=== PATIENT | male | born 1995 | race Caucasian/White ===

== ENCOUNTER 2017-12-23 12:13 | Emergency (ER) | payer SELFPAY ==
[2017-12-23 14:25] VITALS: BP 157/100
--- NOTE | 2017-12-23 14:45 | ED ---
Upper Extremity Pain - HPI Summary HPI Summary: 22 year-old male presents with left middle finger injury since Friday. He states he slammed a car door on his finger. He states at the distal aspect of his finger continues to swell. He has a hematoma under his nail. He has a previous injury to the area multiple years ago and has decreased sensation of that finger at baseline. He states the area is swollen. Pain is 8 out of 10. He states pain is worse with movement. He states that he feels a pressure under his nail. - History of Current Complaint Chief Complaint: EDExtremityUpper Stated Complaint: LT MIDDLE FINGER INJURY Time Seen by Provider: 12/23/17 14:26 - Allergies/Home Medications Allergies/Adverse Reactions: Allergies Allergy/AdvReac Type Severity Reaction Status Date / Time CATS Allergy Severe DYSPNEA Uncoded 09/22/15 16:13 SEASONAL Allergy Coughing Uncoded 09/22/15 16:13 PMH/Surg Hx/FS Hx/Imm Hx Endocrine/Hematology History: Denies: Hx Diabetes, Hx Thyroid Disease Cardiovascular History: Denies: Hx Hypertension Respiratory History: Reports: Hx Asthma Denies: Hx Chronic Obstructive Pulmonary Disease (COPD) GI History: Denies: Hx Ulcer - Surgical History Surgery Procedure, Year, and Place: APPENDECTOMY Infectious Disease History: No Infectious Disease History: Denies: Hx Hepatitis, Hx Human Immunodeficiency Virus (HIV), Traveled Outside the [place] in Last 30 Days - Family History Known Family History: Positive: Hypertension - Social History Alcohol Use: Occasionally Substance Use Type: Reports: None Smoking Status (MU): Former Smoker Type: Cigarettes Amount Used/How Often: 1/2 PK PER DAY Review of Systems Negative: Fever Negative: Chest Pain Positive: Edema - left middle finger All Other Systems Reviewed And Are Negative: Yes Physical Exam Triage Information Reviewed: Yes Vital Signs On Initial Exam: Initial Vitals Temp Pulse Resp BP Pulse Ox 98.1 F 88 16 152/97 100 12/23/17 12:24 12/23/17 12:24 12/23/17 12:24 12/23/17 12:24 12/23/17 12:24 Vital Signs Reviewed: Yes Appearance: Positive: Well-Appearing Skin: Positive: Warm, Dry, Other - left middle finger subungual hematoma Head/Face: Positive: Normal Head/Face Inspection Eyes: Positive: Normal, Conjunctiva Clear Respiratory/Lung Sounds: Positive: Clear to Auscultation, Breath Sounds Present Cardiovascular: Positive: Normal, RRR Musculoskeletal: Positive: Limited @ - DIP of left middle finger, Edema Left - middle finger distal phlanax, Other - capillary refill<2secs, sensation grossly intact Neurological: Positive: Normal Psychiatric: Positive: Normal Procedures - Nail Trepanation Nail Trepanation Location: left middle finger Method of Drainage: nail cauterized Sterile Dressing Applied: No Finger Splint: No Diagnostics - Vital Signs Vital Signs Temp Pulse Resp BP Pulse Ox 12/23/17 14:10 98.1 F 89 16 157/100 98 12/23/17 12:24 98.1 F 88 16 152/97 100 - Laboratory Lab Statement: Any lab studies that have been ordered have been reviewed, and results considered in the medical decision making process. - Radiology hand Xray Interpretation: Positive (See Comments) - IMPRESSION: Significant soft tissue swelling about the tip of the third finger with probable but not definite nondisplaced tuft fracture. Radiology Interpretation Completed By: Radiologist Course/Dx - Course Course Of Treatment: 22 year-old male presents with left middle finger injury since Friday. He states he slammed a car door on his finger. He states at the distal aspect of his finger continues to swell. He has a hematoma under his nail. He has a previous injury to the area multiple years ago and has decreased sensation of that finger at baseline. He states the area is swollen. Pain is 8 out of 10. He states pain is worse with movement. He states that he feels a pressure under his nail. On exam has subungual hematoma that performed nail trepidation with and feeling better. X-ray shows possible tuft. placed in metal finger splint. will have follow up with primary. patient understand and agrees with plan. - Diagnoses Differential Diagnosis/HQI/PQRI: Positive: Contusion, Fracture (Closed), Other - subungual hematoma Provider Diagnoses: Subungual hematoma, Closed fracture of tuft of distal phalanx of finger Discharge - Discharge Plan Condition: Good Disposition: HOME Patient Education Materials: Subungual Hematoma (ED), Finger Fracture (ED) Referrals: No Primary Care Phys,NOPCP [Primary Care Provider] - [facility] [Outside] Additional Instructions: Place neosporin on area Ice Elevate Keep in splint Take Tylenol or ibuprofen for pain every 6 hours Follow up with primary to ensure that heals properly Return to ED if develop any new or worsening symptoms
--- NOTE | 2017-12-23 15:55 | RAD ---
INDICATION: LEFT hand pain following crush injury in door Friday night. Comparison: October 22, 2014 LEFT thumb radiographs. Technique: AP, lateral, and oblique views LEFT hand. Report: Soft tissue swelling including involvement of the nail bed at the third finger distally. Minimal cortical interruption at the distal margin of the tuft of the third distal phalanx suspicious for a nondisplaced tuft fracture given the overlying soft tissue swelling. The fifth finger is held with extension at the metacarpal phalangeal joint and flexion at the proximal interphalangeal joint. Negative for dislocation. No additional significant radiographic abnormality. IMPRESSION: Significant soft tissue swelling about the tip of the third finger with probable but not definite nondisplaced tuft fracture.
== END 2017-12-23 16:22 | disposition home or self-care (01) ==
LOC: ED 12:13
DX: S62.633A Displaced fracture of distal phalanx of left middle finger, initial encounter for closed fracture (principal); S60.032A Contusion of left middle finger without damage to nail, initial encounter; W23.0XXA Caught, crushed, jammed, or pinched between moving objects, initial encounter; Y92.9 Unspecified place or not applicable; Z87.891 Personal history of nicotine dependence
CPT/HCPCS: 99282